=== PATIENT | male | born 1985 ===

== ENCOUNTER 2017-03-24 15:43 | Emergency (ER) | payer BC, OTHER ==
[2017-03-24 15:50] VITALS: TEMP 98.4; O2SAT 99
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
[2017-03-24 18:14] VITALS: BP 142/76; PULSE 62; RESP 18
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
--- NOTE | 2017-03-25 12:32 | RAD ---
PROCEDURE: Cervical Spine Radiographs. HISTORY: Pain. COMPARISON: None. FINDINGS: BONES: Alignment maintained. No fracture. Dens Intact. DISC SPACES: Normal. SOFT TISSUES: Normal. No prevertebral soft tissue swelling. OTHER FINDINGS: None. IMPRESSION: Normal cervical spine radiographs
== END 2017-03-24 18:13 | disposition home or self-care (01) ==
LOC: ED 15:43
DX: S13.9XXA Sprain of joints and ligaments of unspecified parts of neck, initial encounter (principal); V49.9XXA Car occupant (driver) (passenger) injured in unspecified traffic accident, initial encounter; M25.562 Pain in left knee; M25.561 Pain in right knee; R51 Headache